=== PATIENT | male | born 1945 | race Caucasian/White ===

== ENCOUNTER 2021-07-22 12:59 | Inpatient (IN) | payer OTHER, MEDICARE ==
[~2021-07-22] VITALS: Ht 170.2 cm; Wt 72.6 kg
--- NOTE | 2021-07-22 13:10 | NUR ---
DR HARP AT BEDSIDE
--- NOTE | 2021-07-22 13:36 | NUR ---
LUNCHROOM MONITOR AT BEDSIDE
--- NOTE | 2021-07-22 13:45 | NUR ---
RAPID INFLUENZA SWAB DONE AND SENT TO LAB
--- NOTE | 2021-07-22 13:46 | NUR ---
COVID-19 ANTIGEN AND PCR SWAB DONE AND SENT TO LAB
--- NOTE | 2021-07-22 13:47 | NUR ---
PATIENT NOT ABLE TO PROVIDE URINE SAMPLE AT THIS TIME. AWARE
[2021-07-22] MEDS ORDERED: AZITHROMYCIN 500 MG in IV D5W 250 ML IV ONE (14:00)
[2021-07-22] MEDS ORDERED: CEFTRIAXONE 1 G in IV D5W 50 ML IV ONE (14:00)
--- NOTE | 2021-07-22 14:15 | NUR ---
MOVE SHEET SUBMITTED AND CALLED FOR TELE BED
[2021-07-22] MEDS ORDERED: SIMV-46 PO (14:27)
[2021-07-22] MEDS ORDERED: LOSA50TA39 PO (14:27)
[2021-07-22] MEDS ORDERED: LEVO25TA9 PO (14:27)
[2021-07-22] MEDS ORDERED: RAMI5CAP66 PO (14:27)
[2021-07-22] MEDS ORDERED: TAMS-12 PO (14:27)
--- NOTE | 2021-07-22 14:30 | NUR ---
[facility] CALLED JUMPBASTING MACHINE OPERATOR PAGED.
[2021-07-22 14:34] LABS: BASOPHILS % (AUTO) 0.2 % (0.0-2.0); EOSINOPHILS % (AUTO) 0.1 % (0.0-6.0); HEMATOCRIT 39 % (39-51); HEMOGLOBIN 13.4 g/dL (13.5-17.5); LYMPHOCYTES # (AUTO) 0.5 K/uL (0.8-4.8); LYMPHOCYTES % (AUTO) 12.9 % (20.0-44.0); MEAN CORPUSCULAR HGB CONC 35 g/dl (31.0-36.0); MEAN CORPUSCULAR VOLUME 95 fL (80-96); MONOCYTES # (AUTO) 0.3 K/uL (0.1-1.30); MONOCYTES % (AUTO) 8.2 % (2.0-12.0); NEUTROPHILS % (AUTO) 78.6 % (43.0-81.0); PLATELET COUNT (AUTO) 162 K/uL (150-450); RED BLOOD CELL COUNT(AUTO) 4.08 MIL/uL (4.5-6.0); WHITE BLOOD COUNT (AUTO) 3.8 K/uL (4.3-11.0)
[2021-07-22 14:45] LABS: CREATINE KINASE, TOTAL 77 U/L (39-308)
[2021-07-22 14:47] LABS: D-DIMER 3.34 mg/L(FEU (0.17-0.50)
[2021-07-22 14:53] LABS: ALANINE AMINOTRANSFERASE 25 U/L (12-78); ALKALINE PHOSPHATASE 85 U/L (46-116); ASPARTATE AMINOTRANSFERASE 35 U/L (15-37); BILIRUBIN,TOTAL 0.7 mg/dL (0.2-1.0); CALCIUM, SERUM 8.6 mg/dL (8.5-10.1); CARBON DIOXIDE 26 mmol/L (21-32); CHLORIDE 98 mmol/L (98-107); CREATININE 1.5 mg/dL (0.6-1.3); GLUCOSE 117 mg/dL (74-106); SODIUM SERUM 133 mmol/L (136-145); TOTAL PROTEIN, SERUM 7.7 g/dL (6.4-8.2); UREA NITROGEN, BLOOD 18 mg/dL (7-18)
--- NOTE | 2021-07-22 14:55 | NUR ---
PATIENT NOT ABLE TO PROVIDE URINE SAMPLE AT THIS TIME.
[2021-07-22 15:26] LABS: C-REACTIVE PROTEIN 9.7 mg/dL (0.0-0.9)
[2021-07-22] MEDS ORDERED: Z GUARD REMEDY 4 OZ OINT TP PRN (17:00)
[2021-07-22] MEDS ORDERED: MAGNESIUM HYDROXIDE 30 ML UDC PO PRN (17:00)
[2021-07-22] MEDS ORDERED: ONDANSETRON HCL/PF 4 MG/2 ML VIAL IVP PRN (17:00)
[2021-07-22] MEDS ORDERED: ACETAMINOPHEN 325 MG TABLET PO PRN (17:00)
--- NOTE | 2021-07-22 17:12 | NUR ---
GOT BED 206
--- NOTE | 2021-07-22 17:17 | NUR ---
REPORT GIVEN TO LEÓN RIBERA OF [facility] UNIT
--- NOTE | 2021-07-22 17:32 | NUR ---
PATIENT NOT ABLE TO PROVIDE URINE SAMPLE AT THIS TIME.
--- NOTE | 2021-07-22 18:00 | NUR ---
RN NOTE PT TRANSFERRED TO [facility] VIA [facility]. PT IN COMFORTABLE POSITION. EDUCATED SALES AND MERCHANDISING REPRESENTATIVE LIGHT. V/S CHECKED. NO SKIN ISSUES PRESENT. NO DISTRESS NOTED. SAFETY MEASURES IN PLACE. SIDE RAILS RAISED. BED LOWERED. CALL LIGHT WITHIN REACH. WILL GIVE REPORT TO NIGHT NURSE FOR ADMISSION PROCESS AND ALINA.
--- NOTE | 2021-07-22 19:16 | NUR ---
RN NOTE PT MALDIVIAN SPEAKING ONLY. ATTEMPTED TO CONTACT FAMILY. NO RESPONSE. UNABLE TO OBTAIN VACCINATION HX
--- NOTE | 2021-07-22 19:30 | NUR ---
PUMP TECHNICIAN OPENING NOTE RECEIVED PT AWAKE IN BED. A/O X1 WITH EPISODES OF CONFUSION, MOHAWK SPEAKING ONLY. PT ON 3 LPM VIA NC. NO SOB OR S/S OF RESPIRATORY DISTRESS AT THIS TIME. ON EXTERNAL CATTLE SHIPPER. IV ACCESS RFA 20 GAUGE SL, INTACT AND PATENT. SAFETY PRECAUTIONS IN PLACE. BED IN LOWEST LOCKED POSITION, HOB ELEVATED, SIDE RAILS UP X2, AND CALL LIGHT AND TABLE WITHIN REACH. WILL CONTINUE WITH PLAN OF CARE.
[2021-07-22 20:00] VITALS: BP 137/80
[2021-07-22] MEDS: TAMSULOSIN 0.4 MG CAP.SR.24H PO SCH (21:18)
[2021-07-22] MEDS: SIMVASTATIN 20 MG TABLET PO SCH (21:18)
[2021-07-22] MEDS: DOXYCYCLINE 100 MG in IV D5W 100 ML IV SCH (21:20)
[2021-07-22] MEDS: HEPARIN SODIUM, PORCINE 5000 UNITS/1 ML VIAL SQ SCH (21:23)
[2021-07-22] MEDS: DEXAMETHASONE SOD PHOSPHATE 10 MG/ML VIAL IV SCH (21:41)
[2021-07-23] VITALS: BP 132/73
[2021-07-23 04:00] VITALS: BP 118/71
--- NOTE | 2021-07-23 06:46 | NUR ---
MACHINE II CUTTER CLOSING NOTE PT AWAKE IN BED. A/O X1 WITH EPISODES OF CONFUSION, YORUBA SPEAKING ONLY. PT ON 3 LPM VIA NC. NO SOB OR S/S OF RESPIRATORY DISTRESS AT THIS TIME. ON EXTERNAL MAINTENANCE ENGINEER READING SR 1ST DEGREE HEART BLOCK 69 BPM. IV ACCESS RFA 20 GAUGE SL, INTACT AND PATENT. ALL NEEDS MET AT THIS TIME. SAFETY PRECAUTIONS IN PLACE AT ALL TIMES. BED IN LOWEST LOCKED POSITION, HOB ELEVATED, SIDE RAILS UP X2, AND CALL LIGHT AND TABLE WITHIN REACH. WILL ENDORSE TO ONCOMING SHIFT FOR ALINA.
--- NOTE | 2021-07-23 07:05 | NUR ---
CHIEF EXECUTIVE OPENING NOTE RECEIVED PT AWAKE IN BED. A/O X1 WITH EPISODES OF CONFUSION, CROATIAN SPEAKING ONLY. PT IS BREATHING EVENLY AND NONLABORED ON 3 LPM VIA NC. NO SOB OR S/S OF RESPIRATORY DISTRESS AT THIS TIME. ON EXTERNAL LOW PRESSURE BOILER TENDER. IV ACCESS NOTED ON RFA 20 GAUGE SL, INTACT AND PATENT. SAFETY PRECAUTIONS IN PLACE. BED IN LOWEST LOCKED POSITION, HOB ELEVATED, SIDE RAILS UP X2, AND CALL LIGHT AND TABLE WITHIN REACH. WILL CONTINUE TO MONITOR
[2021-07-23 07:07] LABS: BASOPHILS % (AUTO) 0.1 % (0.0-2.0); HEMATOCRIT 36 % (39-51); HEMOGLOBIN 12.5 g/dL (13.5-17.5); LYMPHOCYTES # (AUTO) 0.7 K/uL (0.8-4.8); LYMPHOCYTES % (AUTO) 10.7 % (20.0-44.0); MEAN CORPUSCULAR HGB CONC 35 g/dl (31.0-36.0); MEAN CORPUSCULAR VOLUME 94 fL (80-96); MONOCYTES # (AUTO) 0.4 K/uL (0.1-1.30); MONOCYTES % (AUTO) 5.4 % (2.0-12.0); NEUTROPHILS # (AUTO) 5.5 K/uL (1.8-8.9); NEUTROPHILS % (AUTO) 83.8 % (43.0-81.0); PLATELET COUNT (AUTO) 177 K/uL (150-450); RED BLOOD CELL COUNT(AUTO) 3.81 MIL/uL (4.5-6.0); WHITE BLOOD COUNT (AUTO) 6.6 K/uL (4.3-11.0)
[2021-07-23 07:11] LABS: CALCIUM, SERUM 7.9 mg/dL (8.5-10.1); CARBON DIOXIDE 25 mmol/L (21-32); CHLORIDE 99 mmol/L (98-107); CREATININE 1.4 mg/dL (0.6-1.3); GLUCOSE 100 mg/dL (74-106); MAGNESIUM 2.2 mg/dL (1.8-2.4); POTASSIUM 3.9 mmol/L (3.5-5.1); SODIUM SERUM 133 mmol/L (136-145); UREA NITROGEN, BLOOD 17 mg/dL (7-18)
[2021-07-23 08:00] VITALS: BP 111/71
[2021-07-23] MEDS: DOXYCYCLINE 100 MG in IV D5W 100 ML IV SCH ×2 (08:03→21:08)
[2021-07-23] MEDS: LEVOTHYROXINE SODIUM 25 MCG TABLET PO SCH (08:04)
[2021-07-23] MEDS: DEXAMETHASONE SOD PHOSPHATE 10 MG/ML VIAL IV SCH (08:04)
[2021-07-23] MEDS: PANTOPRAZOLE 40 MG TABLET.DR PO SCH (08:04)
[2021-07-23] MEDS: HEPARIN SODIUM, PORCINE 5000 UNITS/1 ML VIAL SQ SCH ×2 (08:05→21:10)
--- NOTE | 2021-07-23 15:17 | NUR ---
RN NOTE PATIENT NOTED TO HAVE 600 ML + DURING ULTRASOUND, NOTIFIED WHO GAVE NEW ORDER TO INSERT FC, FC 16FR INSERTED, 500 ML OUT. WILL CONTINUE TO MONITOR
[2021-07-23] MEDS: CEFTRIAXONE 1 G in IV D5W 50 ML IV SCH (16:01)
--- NOTE | 2021-07-23 18:16 | NUR ---
DIETICIAN CLOSING NOTE PT AWAKE IN BED. A/O X1 WITH EPISODES OF CONFUSION, BULGARIAN SPEAKING ONLY. PT IS BREATHING EVENLY AND NONLABORED ON 3 LPM VIA NC. NO SOB OR S/S OF RESPIRATORY DISTRESS AT THIS TIME. ON EXTERNAL WELDER FIRST CLASS. IV ACCESS NOTED ON RFA 20 GAUGE SL, INTACT AND PATENT. F/C DRAINING JUSTIN URINE. SAFETY PRECAUTIONS IN PLACE. BED IN LOWEST LOCKED POSITION, HOB ELEVATED, SIDE RAILS UP X2, AND CALL LIGHT AND TABLE WITHIN REACH. WILL ENDORSE TO ONCOMING SHIFT
--- NOTE | 2021-07-23 19:25 | NUR ---
RN OPENING NOTES RECEIVED PT IN BED, AWAKE. AOx2-3, WITH PERIODS OF CONFUSION. ON NC 3LPM AND TOLERATING WELL. NO SOB NOTED. NO S/SX OF RESPIRATORY DISTRESS NOTED. TELE MONITOR ON. IV ACCES IN RFA #20. IV IS INTACT, PATENT, AND FLUSHING WELL. SAFETY PRECAUTIONS IN PLACE: BED IN LOWEST, LOCKED POSITION, BRAKES ON, AND SIDERAILS UPx2. TABLE AND CALL LIGHT WITHIN REACH. WILL CONTINUE TO MONITOR.
[2021-07-23 20:00] VITALS: BP 123/73
[2021-07-23] MEDS: TAMSULOSIN 0.4 MG CAP.SR.24H PO SCH (21:08)
[2021-07-23] MEDS: SIMVASTATIN 20 MG TABLET PO SCH (21:09)
[2021-07-24] VITALS: BP 119/75
[2021-07-24 03:09] LABS: BILIRUBIN,URINE NEGATIVE (NEGATIVE); COLOR,URINE YELLOW (YELLOW); LEUKOCYTE ESTERASE ,URINE NEGATIVE (NEGATIVE); NITRITE, URINE NEGATIVE (NEGATIVE); PROTEIN,URINE TRACE mg/dl (NEGATIVE); UGLUCOSE NEGATIVE (NEGATIVE); UROBILINOGEN,URINE 0.2 EU/dL (0.2)
[2021-07-24 03:33] LABS: CREATININE, URINE 198.9 MG/DL (30.0-125.0); URINE TOTAL PROTEIN 65.1 mg/dL (0-11.9)
[2021-07-24 04:00] VITALS: BP 116/69
[2021-07-24 06:23] LABS: BACTERIA,URINE Few /HPF (None Seen); RBC,URINE 0-2 /HPF (0-2); SQUAMOUS EPITHELIAL CELL,UR Few /HPF (None Seen); URINE AMORPHOUS URATE Many /HPF (None Seen); WBC,URINE 0-2 /HPF (0-3)
[2021-07-24] MEDS: PANTOPRAZOLE 40 MG TABLET.DR PO SCH (06:50)
--- NOTE | 2021-07-24 07:04 | NUR ---
RN CLOSING NOTES RECEIVED PT IN BED, AWAKE. AOx1-2, WITH PERIODS OF CONFUSION. ON NC 3LPM AND TOLERATING WELL. NO SOB NOTED. NO S/SX OF RESPIRATORY DISTRESS NOTED. TELE MONITOR DETECTS SR WITH AV BLOCK AND RATE IN 60s. IV ACCES IN RFA #20. IV IS INTACT, PATENT, AND FLUSHING WELL. FC DRAINING TEA COLORED URINE. ALL NEEDS MET. PT KEPT CLEAN AND DRY. SAFETY PRECAUTIONS IN PLACE: BED IN LOWEST, LOCKED POSITION, BRAKES ON, AND SIDERAILS UPx2. TABLE AND CALL LIGHT WITHIN REACH. WILL ENDORSE TO ONCOMING SHIFT FOR ALINA.
[2021-07-24 07:09] LABS: BASOPHILS % (AUTO) 0.1 % (0.0-2.0); HEMATOCRIT 37 % (39-51); HEMOGLOBIN 12.9 g/dL (13.5-17.5); LYMPHOCYTES # (AUTO) 0.4 K/uL (0.8-4.8); MEAN CORPUSCULAR HGB CONC 35 g/dl (31.0-36.0); MEAN CORPUSCULAR VOLUME 94 fL (80-96); MONOCYTES # (AUTO) 0.3 K/uL (0.1-1.30); MONOCYTES % (AUTO) 4.5 % (2.0-12.0); NEUTROPHILS # (AUTO) 6.6 K/uL (1.8-8.9); NEUTROPHILS % (AUTO) 89.4 % (43.0-81.0); PLATELET COUNT (AUTO) 208 K/uL (150-450); RED BLOOD CELL COUNT(AUTO) 3.89 MIL/uL (4.5-6.0); WHITE BLOOD COUNT (AUTO) 7.4 K/uL (4.3-11.0)
[2021-07-24 07:39] LABS: ALANINE AMINOTRANSFERASE 24 U/L (12-78); ALBUMIN 2.7 g/dL (3.4-5.0); ALKALINE PHOSPHATASE 73 U/L (46-116); ASPARTATE AMINOTRANSFERASE 27 U/L (15-37); BILIRUBIN,TOTAL 0.4 mg/dL (0.2-1.0); CALCIUM, SERUM 8.4 mg/dL (8.5-10.1); CARBON DIOXIDE 28 mmol/L (21-32); CHLORIDE 101 mmol/L (98-107); CREATININE 1.4 mg/dL (0.6-1.3); GLUCOSE 120 mg/dL (74-106); MAGNESIUM 2.2 mg/dL (1.8-2.4); PHOSPHORUS 3.3 mg/dL (2.5-4.9); POTASSIUM 4.4 mmol/L (3.5-5.1); SODIUM SERUM 135 mmol/L (136-145); TOTAL PROTEIN, SERUM 7.3 g/dL (6.4-8.2); UREA NITROGEN, BLOOD 24 mg/dL (7-18)
[2021-07-24 07:41] LABS: CREATINE KINASE, TOTAL 90 U/L (39-308)
[2021-07-24] MEDS: DEXAMETHASONE SOD PHOSPHATE 10 MG/ML VIAL IV SCH (08:34)
[2021-07-24] MEDS: DOXYCYCLINE 100 MG in IV D5W 100 ML IV SCH (08:34)
[2021-07-24] MEDS: LEVOTHYROXINE SODIUM 25 MCG TABLET PO SCH (08:34)
[2021-07-24] MEDS: HEPARIN SODIUM, PORCINE 5000 UNITS/1 ML VIAL SQ SCH ×2 (08:38→21:06)
[2021-07-24 08:40] VITALS: BP 122/56
[2021-07-24 12:38] VITALS: BP 109/68
[2021-07-24 16:01] VITALS: BP 152/68
[2021-07-24] MEDS: CEFTRIAXONE 1 G in IV D5W 50 ML IV SCH (16:31)
[2021-07-24 16:35] LABS: EOSINOPHIL,URINE None Seen
[2021-07-24 19:11] LABS: ABG BASE EXCESS -0.6 mmol/L; ABG OXYGEN SATURATION 97.4 % (92.0-98.5); ABG PCO2 33.4 mmHg (35.0-45.0); ABG PH 7.451 (7.350-7.450); ABG PO2 100.4 mmHg (75.0-100.0); AaDO2 9.3 mmHg; COHb 0.1 % (0.5-1.5); MetHb 0.1 % (0.0-1.5); O2Hb 97.2 % (94.0-97.0); SITE, ABG Right Radial; VENT MODE, BG 21% ROOM AIR
--- NOTE | 2021-07-24 19:25 | NUR ---
CHANGE OF SHIFT REPORT PT RESTING COMFORTABLY IN BED. NO S/S OR C/O PAIN OR DISTRESS NOTED. SIDE RAILS UP X2, CALL LIGHT LEFT WITHIN REACH. NO SIGNIFICANT CHANGES SINCE PREVIOUS SHIFT. WILL GIVE REPORT TO DULCE RIBERA.
--- NOTE | 2021-07-24 19:50 | NUR ---
TELE/RN OPENING NOTE RECEIVED PATIENT RESTING IN BED. AWAKE, ALERT AND ORIENTED X 4. PRIMARILY GREEK SPEAKING. ABLE TO MAKE NEEDS KNOWN. DENIES PAIN AT THIS TIME. CONTINUES ON O2 3L VIA NC WITH NO S/SX OF RESPIRATORY DISTRESS NOTED. IV ACCESS TO RIGHT FOREARM #20G INTACT, PATENT AND SALINE LOCKED. CONTINUES ON IV ABX. RDZ CATHETER IN PLACE DRAINING CLEAR, YELLOW URINE TO GRAVITY. CALL LIGHT WITHIN REACH. ASPIRATION, FALL AND SAFETY PRECAUTIONS MAINTAINED. WILL CONTINUE TO MONITOR.
[2021-07-24 20:00] VITALS: BP 118/76
[2021-07-24] MEDS: DOXYCYCLINE HYCLATE (100 MG) 100 MG TABLET PO SCH (21:04)
[2021-07-24] MEDS: SIMVASTATIN 20 MG TABLET PO SCH (21:04)
[2021-07-24] MEDS: TAMSULOSIN 0.4 MG CAP.SR.24H PO SCH (21:04)
[2021-07-25] VITALS: BP 112/54
[2021-07-25 04:00] VITALS: BP 120/72
--- NOTE | 2021-07-25 06:40 | NUR ---
TELE/RN CLOSING NOTE PATIENT CURRENTLY SLEEPING IN BED. ALERT AND ORIENTED X 4. PRIMARILY BAHRAINI SPEAKING. ABLE TO MAKE NEEDS KNOWN. DENIES PAIN AT THIS TIME. CONTINUES ON O2 3L VIA NC WITH NO S/SX OF RESPIRATORY DISTRESS NOTED. IV ACCESS TO RIGHT HAND #20G INTACT, PATENT AND SALINE LOCKED. CONTINUES ON IV ABX. RDZ CATHETER IN PLACE DRAINING CLEAR, YELLOW URINE TO GRAVITY. CALL LIGHT WITHIN REACH. ASPIRATION, FALL AND SAFETY PRECAUTIONS MAINTAINED. WILL ENDORSE PLAN OF CARE TO ONCOMING SHIFT.
[2021-07-25 07:02] LABS: CALCIUM, SERUM 8.3 mg/dL (8.5-10.1); CARBON DIOXIDE 28 mmol/L (21-32); CHLORIDE 100 mmol/L (98-107); CREATININE 1.5 mg/dL (0.6-1.3); GLUCOSE 111 mg/dL (74-106); MAGNESIUM 2.1 mg/dL (1.8-2.4); PHOSPHORUS 3.1 mg/dL (2.5-4.9); POTASSIUM 3.9 mmol/L (3.5-5.1); SODIUM SERUM 137 mmol/L (136-145); UREA NITROGEN, BLOOD 34 mg/dL (7-18)
[2021-07-25 07:03] LABS: BASOPHILS % (AUTO) 0.1 % (0.0-2.0); HEMATOCRIT 36 % (39-51); HEMOGLOBIN 12.7 g/dL (13.5-17.5); LYMPHOCYTES # (AUTO) 0.6 K/uL (0.8-4.8); MEAN CORPUSCULAR HGB CONC 35 g/dl (31.0-36.0); MEAN CORPUSCULAR VOLUME 95 fL (80-96); MONOCYTES # (AUTO) 0.5 K/uL (0.1-1.30); MONOCYTES % (AUTO) 5.4 % (2.0-12.0); NEUTROPHILS # (AUTO) 8.4 K/uL (1.8-8.9); NEUTROPHILS % (AUTO) 88.5 % (43.0-81.0); PLATELET COUNT (AUTO) 231 K/uL (150-450); RED BLOOD CELL COUNT(AUTO) 3.83 MIL/uL (4.5-6.0); WHITE BLOOD COUNT (AUTO) 9.5 K/uL (4.3-11.0)
--- NOTE | 2021-07-25 07:36 | NUR ---
RN OPENING NOTES PATIENT SLEEPING, AWAKENS TO VERBAL STIMULI A/O X3-4. NO S/S OF PAIN NOTED AT THIS TIME. ON 3L OXYGEN VIA NC, NO DISTRESS OR SHORTNESS OF BREATH NOTED. IV ACCESS RFA #20G, INTACT, PATENT AND FLUSHING WELL. PATIENT HAVE A RDZ CATHETER, IN PLACE AND DRAINING WELL. FALL AND SAFETY MEASURES IN PLACE, BED ALARM ON, BED IN LOW AND LOCK POSITION, CALL LIGHT AND TABLE WITHIN EASY REACH, SIDE RAILS UP X2. WILL CONTINUE TO MONITOR.
[2021-07-25 08:00] VITALS: BP 134/92
[2021-07-25] MEDS: DOXYCYCLINE HYCLATE (100 MG) 100 MG TABLET PO SCH ×2 (09:25→20:45)
[2021-07-25] MEDS: PANTOPRAZOLE 40 MG TABLET.DR PO SCH (09:25)
[2021-07-25] MEDS: LEVOTHYROXINE SODIUM 25 MCG TABLET PO SCH (09:25)
[2021-07-25] MEDS: DEXAMETHASONE SOD PHOSPHATE 10 MG/ML VIAL IV SCH (09:26)
[2021-07-25] MEDS: HEPARIN SODIUM, PORCINE 5000 UNITS/1 ML VIAL SQ SCH ×2 (09:27→20:47)
[2021-07-25 12:00] VITALS: BP 128/75
[2021-07-25 12:06] LABS: *SPE A/G RATIO 0.7 (0.7-1.7); *SPE ALPHA-1-GLOBULIN 0.3 g/dL (0.0-0.4); *SPE ALPHA-2-GLOBULIN 0.9 g/dL (0.4-1.0); *SPE M-SPIKE Not Observed g/dL (Not Observed)
[2021-07-25 16:00] VITALS: BP 128/81
[2021-07-25] MEDS: CEFTRIAXONE 1 G in IV D5W 50 ML IV SCH (17:32)
--- NOTE | 2021-07-25 19:16 | NUR ---
RN CLOSING NOTES PATIENT AWAKE RESTING IN BED A/O X3-4. NO S/S OF PAIN NOTED AT THIS TIME. ON 3L OXYGEN VIA NC, NO DISTRESS OR SHORTNESS OF BREATH NOTED. IV ACCESS RFA #20G, INTACT, PATENT AND FLUSHING WELL. PATIENT HAVE A RDZ CATHETER, IN PLACE AND DRAINING WELL. FALL AND SAFETY MEASURES IN PLACE, BED ALARM ON, BED IN LOW AND LOCK POSITION, CALL LIGHT AND TABLE WITHIN EASY REACH, SIDE RAILS UP X2. WILL ENDORSE TO C++ PROFESSOR.
--- NOTE | 2021-07-25 19:40 | NUR ---
TELE/RN OPENING NOTE PATIENT CURRENTLY RESTING IN BED. AWAKE, ALERT AND ORIENTED X 4. PRIMARILY NORTH KOREAN SPEAKING. ABLE TO MAKE NEEDS KNOWN. DENIES PAIN AT THIS TIME. CONTINUES ON O2 2L VIA NC WITH NO S/SX OF RESPIRATORY DISTRESS NOTED. IV ACCESS TO RIGHT HAND #20G INTACT, PATENT AND SALINE LOCKED. CONTINUES ON IV ABX. RDZ CATHETER IN PLACE DRAINING CLEAR, YELLOW URINE TO GRAVITY. CALL LIGHT WITHIN REACH. ASPIRATION, FALL AND SAFETY PRECAUTIONS MAINTAINED. WILL CONTINUE TO MONITOR.
[2021-07-25 20:00] VITALS: BP 132/79
[2021-07-25] MEDS: TAMSULOSIN 0.4 MG CAP.SR.24H PO SCH (21:25)
[2021-07-25] MEDS: SIMVASTATIN 20 MG TABLET PO SCH (21:25)
[2021-07-26] VITALS: BP 128/68
[2021-07-26 04:00] VITALS: BP 128/68
--- NOTE | 2021-07-26 06:40 | NUR ---
TELE/RN CLOSING NOTE PATIENT CURRENTLY SLEEPING IN BED. ALERT AND ORIENTED X 4. PRIMARILY PALAUAN SPEAKING. ABLE TO MAKE NEEDS KNOWN. DENIES PAIN AT THIS TIME. CONTINUES ON O2 2L VIA NC WITH NO S/SX OF RESPIRATORY DISTRESS NOTED. IV ACCESS TO RIGHT HAND #20G INTACT, PATENT AND SALINE LOCKED. CONTINUES ON IV ABX. RDZ CATHETER IN PLACE DRAINING CLEAR, YELLOW URINE TO GRAVITY. CALL LIGHT WITHIN REACH. ASPIRATION, FALL AND SAFETY PRECAUTIONS MAINTAINED. WILL ENDORSE PLAN OF CARE TO ONCOMING SHIFT.
[2021-07-26 06:49] LABS: BASOPHILS % (AUTO) 0.2 % (0.0-2.0); HEMATOCRIT 37 % (39-51); HEMOGLOBIN 12.8 g/dL (13.5-17.5); LYMPHOCYTES # (AUTO) 0.7 K/uL (0.8-4.8); LYMPHOCYTES % (AUTO) 10.3 % (20.0-44.0); MEAN CORPUSCULAR HGB CONC 34 g/dl (31.0-36.0); MEAN CORPUSCULAR VOLUME 95 fL (80-96); MONOCYTES # (AUTO) 0.5 K/uL (0.1-1.30); MONOCYTES % (AUTO) 7.7 % (2.0-12.0); NEUTROPHILS # (AUTO) 5.4 K/uL (1.8-8.9); NEUTROPHILS % (AUTO) 81.8 % (43.0-81.0); PLATELET COUNT (AUTO) 210 K/uL (150-450); WHITE BLOOD COUNT (AUTO) 6.7 K/uL (4.3-11.0)
--- NOTE | 2021-07-26 07:25 | NUR ---
TEST GRADER OPENING NOTES RECEIVED PATIENT IN BED, AWAKE A/O X4, VERBALLY RESPONSIVE. NO SIGNS OF ACUTE DISTRESS NOTED. ON O2 @2LPM VIA N/C, NO SOB NOTED, SATURATION @97%. NO C/O PAIN OR DISCOMFORT. IV ACCESS ON RHAND #20G, SL. WITH F/C INTACT AND PATENT, DRAINING CLEAR YELLOW URINE. ON TELE MONITOR. NO SIGNS OF CARDIAC DISTRESS NOTED. ISOLATION PRECAUTION OBSERVED. SAFETY PRECAUTIONS MAINTAINED. BED DANITZA DAND IN LOWEST POSITION, SR UP, CALL LIGHT PLACED WITHIN EASY REACH. WILL CONTINUE TO MONITOR.
[2021-07-26 07:54] LABS: CALCIUM, SERUM 8.2 mg/dL (8.5-10.1); CARBON DIOXIDE 25 mmol/L (21-32); CHLORIDE 104 mmol/L (98-107); CREATININE 1.4 mg/dL (0.6-1.3); GLUCOSE 103 mg/dL (74-106); POTASSIUM 4.2 mmol/L (3.5-5.1); SODIUM SERUM 137 mmol/L (136-145); UREA NITROGEN, BLOOD 37 mg/dL (7-18)
[2021-07-26 08:00] VITALS: BP 153/81
[2021-07-26] MEDS: PANTOPRAZOLE 40 MG TABLET.DR PO SCH (08:03)
[2021-07-26] MEDS: HEPARIN SODIUM, PORCINE 5000 UNITS/1 ML VIAL SQ SCH ×2 (08:42→21:07)
[2021-07-26] MEDS: LEVOTHYROXINE SODIUM 25 MCG TABLET PO SCH (08:43)
[2021-07-26] MEDS: DOXYCYCLINE HYCLATE (100 MG) 100 MG TABLET PO SCH ×2 (08:43→21:07)
[2021-07-26] MEDS: DEXAMETHASONE SOD PHOSPHATE 10 MG/ML VIAL IV SCH (08:43)
[2021-07-26] MEDS ORDERED: REMDESIVIR (CHARGED) 200 MG, *LOADING DOSE 1 EA in IV NS 0.9% 210 ML IV ONE (11:00)
[2021-07-26] MEDS: CEFTRIAXONE 1 G in IV D5W 50 ML IV SCH (16:32)
--- NOTE | 2021-07-26 18:55 | NUR ---
BLEACHER LARD CLOSING NOTES PATIENT RESTING IN BED, AWAKE, A/O X4, VERBALLY RESPONSIVE. NO SIGNS OF ACUTE DISTRESS NOTED. REMAINS ON O2 @2LPM VIA N/C, NO SOB NOTED, SATURATION @97%. NO C/O PAIN OR DISCOMFORT. IV ACCESS ON RHAND #20G, SL. FIRST DOSE OF REMDESIVIR GIVEN, NO ASE NOTED. WITH F/C INTACT AND PATENT, DRAINING CLEAR YELLOW URINE. ON TELE MONITOR WITH CURRENT READING OF NSR @93.. NO SIGNS OF CARDIAC DISTRESS NOTED. ISOLATION PRECAUTION OBSERVED. SAFETY PRECAUTIONS MAINTAINED. BED LOCKED AND IN LOWEST POSITION, SR UP, CALL LIGHT PLACED WITHIN EASY REACH. WILL ENDORSE TO NEXT SHIFT.
[2021-07-26 20:00] VITALS: BP 121/60
[2021-07-26] MEDS: TAMSULOSIN 0.4 MG CAP.SR.24H PO SCH (21:08)
[2021-07-26] MEDS: SIMVASTATIN 20 MG TABLET PO SCH (21:08)
[2021-07-27] VITALS: BP 155/81
[2021-07-27 04:00] VITALS: BP 135/74
--- NOTE | 2021-07-27 06:35 | NUR ---
CANINE ENFORCEMENT OFFICER NOTES AWAKE & RESPONSIVE. NOT IN ANY DISTRESS. NO SOB NOTED. NO S/SX OF ANY PAIN OR DISCOMFORT AT THIS TIME. ON TELE SR @ 73 WITH IV-HL PATENT & INTACT. AM CARE DONE. MONITORED ACCORDINGLY. CALL LIGHT WITHIN REACH. BED IN LOWEST POSITION. SR UP X 3 WITH BED ALARM ON FOR SAFETY. WILL ENDORSE TO NEXT SHIFT.
[2021-07-27 06:58] LABS: EOSINOPHILS % (AUTO) 0.2 % (0.0-6.0); HEMATOCRIT 38 % (39-51); HEMOGLOBIN 13.2 g/dL (13.5-17.5); LYMPHOCYTES % (AUTO) 18.2 % (20.0-44.0); MEAN CORPUSCULAR HGB CONC 35 g/dl (31.0-36.0); MEAN CORPUSCULAR VOLUME 95 fL (80-96); MONOCYTES # (AUTO) 0.7 K/uL (0.1-1.30); MONOCYTES % (AUTO) 12.1 % (2.0-12.0); NEUTROPHILS # (AUTO) 3.8 K/uL (1.8-8.9); NEUTROPHILS % (AUTO) 69.5 % (43.0-81.0); PLATELET COUNT (AUTO) 240 K/uL (150-450); RED BLOOD CELL COUNT(AUTO) 4.03 MIL/uL (4.5-6.0); WHITE BLOOD COUNT (AUTO) 5.5 K/uL (4.3-11.0)
[2021-07-27 07:10] LABS: ALBUMIN 2.6 g/dL (3.4-5.0); BILIRUBIN,DIRECT 0.2 mg/dL (0.0-0.2); BILIRUBIN,TOTAL 0.3 mg/dL (0.2-1.0); CALCIUM, SERUM 8.5 mg/dL (8.5-10.1); CREATININE 1.3 mg/dL (0.6-1.3); POTASSIUM 4.1 mmol/L (3.5-5.1); TOTAL PROTEIN, SERUM 6.9 g/dL (6.4-8.2)
[2021-07-27 08:00] VITALS: BP 138/68
--- NOTE | 2021-07-27 08:20 | NUR ---
ms rn received on bed, awake,alert,oriented x3,not in any form of ditress, respirations even and unlabored,no sob noted, denies pain at this time, will monitor patient.
[2021-07-27] MEDS: DEXAMETHASONE SOD PHOSPHATE 10 MG/ML VIAL IV SCH (09:08)
[2021-07-27] MEDS: DOXYCYCLINE HYCLATE (100 MG) 100 MG TABLET PO SCH ×2 (09:09→20:59)
[2021-07-27] MEDS: LEVOTHYROXINE SODIUM 25 MCG TABLET PO SCH (09:09)
[2021-07-27] MEDS: PANTOPRAZOLE 40 MG TABLET.DR PO SCH (09:09)
[2021-07-27] MEDS: HEPARIN SODIUM, PORCINE 5000 UNITS/1 ML VIAL SQ SCH ×2 (09:09→20:58)
[2021-07-27] MEDS ORDERED: REMDESIVIR (CHARGED) 100 MG in IV NS 0.9% 230 ML IV SCH (09:30)
--- NOTE | 2021-07-27 10:00 | NUR ---
ms weber breakfast served,due meds given,tolerated well.
[2021-07-27] MEDS: REMDESIVIR (CHARGED) 100 MG in IV NS 0.9% 100 ML IV SCH (15:20)
--- NOTE | 2021-07-27 16:39 | NUR ---
ms rn on bed, no distress noted.
[2021-07-27] MEDS: CEFTRIAXONE 1 G in IV D5W 50 ML IV SCH (17:53)
--- NOTE | 2021-07-27 19:05 | NUR ---
ms rn on bed, no distress noted.
--- NOTE | 2021-07-27 19:45 | NUR ---
RN NOTES Received patient awake on his bed, a/ox3, Egyptian speaking, SR on tele monitor HR-84, not in distress, denies pain, call light within reach, siderailsupx2, will continue to monitor
[2021-07-27 20:00] VITALS: BP 143/89
[2021-07-27] MEDS: TAMSULOSIN 0.4 MG CAP.SR.24H PO SCH (21:00)
[2021-07-27] MEDS: SIMVASTATIN 20 MG TABLET PO SCH (21:00)
[2021-07-27 22:00] VITALS: BP 150/70
[2021-07-28] VITALS: BP 143/92
[2021-07-28 04:00] VITALS: BP 151/91
--- NOTE | 2021-07-28 07:00 | NUR ---
RN NOTES awake, denies pain, no SOB, morning care rendered, pt. needs attended
[2021-07-28 07:11] LABS: BASOPHILS % (AUTO) 0.1 % (0.0-2.0); EOSINOPHILS % (AUTO) 0.1 % (0.0-6.0); HEMATOCRIT 37 % (39-51); HEMOGLOBIN 12.8 g/dL (13.5-17.5); LYMPHOCYTES # (AUTO) 0.9 K/uL (0.8-4.8); LYMPHOCYTES % (AUTO) 17.9 % (20.0-44.0); MEAN CORPUSCULAR HGB CONC 34 g/dl (31.0-36.0); MEAN CORPUSCULAR VOLUME 96 fL (80-96); MONOCYTES # (AUTO) 0.7 K/uL (0.1-1.30); MONOCYTES % (AUTO) 13.8 % (2.0-12.0); NEUTROPHILS # (AUTO) 3.6 K/uL (1.8-8.9); NEUTROPHILS % (AUTO) 68.1 % (43.0-81.0); PLATELET COUNT (AUTO) 239 K/uL (150-450); RED BLOOD CELL COUNT(AUTO) 3.91 MIL/uL (4.5-6.0); WHITE BLOOD COUNT (AUTO) 5.2 K/uL (4.3-11.0)
--- NOTE | 2021-07-28 07:30 | NUR ---
FINE ARTS CHAIR OPENING NOTES RECEIVED PATIENT ON BED RESTING ON BED AND A/O X3. ON O2 AT 2LPM VIA NASAL CANNULA TOLERATING WELL. NO SOB NOTED. NOT IN DISTRESS. WITH NO COMPLAINTS OF PAIN OR DISCOMFORT AT THIS TIME. WITH IV ACCESS AT RIGHT HAND G20 SALINE LOCKED, PATENT AND INTACT. SAFETY MEASURES IN PLACED. CALL LIGHT WITHIN REACH. BED ON LOWEST LOCKED POSITION, SIDE RAILS UP X2. WILL CONTINUE TO MONITOR.
[2021-07-28 07:32] LABS: ALBUMIN 2.5 g/dL (3.4-5.0); BILIRUBIN,DIRECT 0.2 mg/dL (0.0-0.2); BILIRUBIN,TOTAL 0.3 mg/dL (0.2-1.0); CALCIUM, SERUM 8.2 mg/dL (8.5-10.1); CREATININE 1.3 mg/dL (0.6-1.3); POTASSIUM 4.3 mmol/L (3.5-5.1); TOTAL PROTEIN, SERUM 6.4 g/dL (6.4-8.2)
[2021-07-28 08:00] VITALS: BP 128/85
[2021-07-28] MEDS: PANTOPRAZOLE 40 MG TABLET.DR PO SCH (08:55)
[2021-07-28] MEDS: LEVOTHYROXINE SODIUM 25 MCG TABLET PO SCH (08:55)
[2021-07-28] MEDS: DOXYCYCLINE HYCLATE (100 MG) 100 MG TABLET PO SCH ×2 (08:55→21:22)
[2021-07-28] MEDS: DEXAMETHASONE SOD PHOSPHATE 10 MG/ML VIAL IV SCH (08:55)
[2021-07-28] MEDS: HEPARIN SODIUM, PORCINE 5000 UNITS/1 ML VIAL SQ SCH ×2 (08:56→21:25)
[2021-07-28] MEDS: REMDESIVIR (CHARGED) 100 MG in IV NS 0.9% 100 ML IV SCH (14:42)
[2021-07-28] MEDS: CEFTRIAXONE 1 G in IV D5W 50 ML IV SCH (16:08)
--- NOTE | 2021-07-28 18:55 | NUR ---
PROJECT ENG CLOSING NOTES PATIENT ON BED RESTING ON BED AND A/O X3. ON O2 AT 2LPM VIA NASAL CANNULA TOLERATING WELL. NO SOB NOTED. NOT IN DISTRESS. WITH NO COMPLAINTS OF PAIN OR DISCOMFORT AT THIS TIME. WITH IV ACCESS AT RIGHT HAND G20 SALINE LOCKED, PATENT AND INTACT. ON TELE MONITOR CURRENTLY READING SINUS RHYTHM WITH FIRST DEGREE BLOCK AT 76BPM. DUE MEDS GIVEN. SAFETY MEASURES IN PLACED. CALL LIGHT WITHIN REACH. BED ON LOWEST LOCKED POSITION, SIDE RAILS UP X2. WILL ENDORSE TO NEXT SHIFT FOR ALINA.
--- NOTE | 2021-07-28 19:50 | NUR ---
DESK LIEUTENANT OPENING NOTE PATIENT AWAKE IN BED, ALERT/ORIENTED X 3, PT PRIMARILY KOREAN SPEAKING. NO S/S OF PAIN OR DISCOMFORT AT THIS TIME. PT STABLE ON 2 LPM OF OXYGEN VIA NC, NO S/S OF DISTRESS OR SOB NOTED, BREATHING EVEN AND UNLABORED. IV ACCESS ON RIGHT HAND #22G INTACT AND SALINE LOCKED. PT ON EXTERNAL CANTILEVER CRANE OPERATOR READING SINUS RHYTHM WITH FIRST DEGREE BLOCK, HR: 71. RDZ CATHETER INTACT AND DRAINING YELLOW URINE. SAFETY MEASURES IN PLACE: CALL LIGHT WITHIN REACH, SIDE RAILS UP X 2, BED LOCKED IN LOW POSITION, BED ALARM ON. WILL CONTINUE TO MONITOR PATIENT
[2021-07-28 20:00] VITALS: BP 118/72
[2021-07-28] MEDS: TAMSULOSIN 0.4 MG CAP.SR.24H PO SCH (21:22)
[2021-07-28] MEDS: SIMVASTATIN 20 MG TABLET PO SCH (21:22)
[2021-07-29] VITALS: BP 137/78
[2021-07-29 04:00] VITALS: BP 139/75
--- NOTE | 2021-07-29 07:29 | NUR ---
CHIEF OF SERVICE CLOSING NOTE PATIENT SLEEPING IN BED, EASILY AWAKENED, NO SIGNIFICANT CHANGES THROUGHOUT SHIFT. MEDICATIONS GIVEN ORDERED, PT NEEDS MET THROUGHOUT SHIFT. NO S/S OF PAIN OR DISCOMFORT AT THIS TIME. PT STABLE ON 2 LPM OF OXYGEN VIA NC, NO S/S OF DISTRESS OR SOB NOTED, BREATHING EVEN AND UNLABORED. IV ACCESS ON RIGHT HAND #22G INTACT AND SALINE LOCKED. PT ON EXTERNAL NUCLEAR SUPERVISING OPERATOR READING SINUS RHYTHM WITH FIRST DEGREE BLOCK. RDZ CATHETER INTACT AND DRAINING YELLOW URINE. SAFETY MEASURES IN PLACE: CALL LIGHT WITHIN REACH, SIDE RAILS UP X 2, BED LOCKED IN LOW POSITION, BED ALARM ON. ENDORSED TO DAY SHIFT NURSE FOR CONTINUITY OF CARE
[2021-07-29 08:00] VITALS: BP 145/80
--- NOTE | 2021-07-29 08:00 | NUR ---
RN Opening Note Patient received in bed, does not appears distress, able to responds all stimuli. Skin is warm to touch, keep clean/dry, intact IV site. Respiratory even and unlabored with oxygen at 2Ls. Kept elevated HOB for ensure air/aspiration precaution and remains lower position of the bed. call light within reach, will continue to monitor.
[2021-07-29] MEDS: PANTOPRAZOLE 40 MG TABLET.DR PO SCH (08:03)
[2021-07-29 08:13] LABS: ALBUMIN 2.4 g/dL (3.4-5.0); BILIRUBIN,DIRECT 0.1 mg/dL (0.0-0.2); BILIRUBIN,TOTAL 0.3 mg/dL (0.2-1.0); CREATININE 1.3 mg/dL (0.6-1.3); POTASSIUM 4.3 mmol/L (3.5-5.1)
[2021-07-29 08:16] LABS: BASOPHILS % (AUTO) 0.3 % (0.0-2.0); EOSINOPHILS % (AUTO) 0.1 % (0.0-6.0); HEMATOCRIT 37 % (39-51); HEMOGLOBIN 12.4 g/dL (13.5-17.5); LYMPHOCYTES % (AUTO) 17.4 % (20.0-44.0); MEAN CORPUSCULAR HGB CONC 34 g/dl (31.0-36.0); MEAN CORPUSCULAR VOLUME 95 fL (80-96); MONOCYTES # (AUTO) 0.8 K/uL (0.1-1.30); MONOCYTES % (AUTO) 12.8 % (2.0-12.0); NEUTROPHILS # (AUTO) 4.2 K/uL (1.8-8.9); NEUTROPHILS % (AUTO) 69.4 % (43.0-81.0); PLATELET COUNT (AUTO) 223 K/uL (150-450); RED BLOOD CELL COUNT(AUTO) 3.83 MIL/uL (4.5-6.0)
[2021-07-29] MEDS: LEVOTHYROXINE SODIUM 25 MCG TABLET PO SCH (09:10)
[2021-07-29] MEDS: DEXAMETHASONE SOD PHOSPHATE 10 MG/ML VIAL IV SCH (09:11)
[2021-07-29] MEDS: HEPARIN SODIUM, PORCINE 5000 UNITS/1 ML VIAL SQ SCH (09:12)
[2021-07-29 12:00] VITALS: BP 136/86
[2021-07-29] MEDS: REMDESIVIR (CHARGED) 100 MG in IV NS 0.9% 100 ML IV SCH (15:33)
[2021-07-29 16:00] VITALS: BP 122/71
--- NOTE | 2021-07-29 18:00 | NUR ---
RN Closing Note Patient is resting in bed, no distress observed. Respiratory even and unlabored with oxygen at 2Ls. Skin is warm to touch, keep clean/dry, intact IV site. Kept elevated HOB for ensure airway and aspiration precaution, Also lower position of the bed for safety. Call light within reach, all needs met. will endorse maintenance supervisor 2nd shift.
--- NOTE | 2021-07-29 19:30 | NUR ---
RN opening notes Received Pt in bed watching TV comfortably. Pt is alert and orientedX2-3. Pt speaks Italian and able to make needs known. Respiration is 2 L NC. No SOB. No S/s of distress noted. R hand# 22 is clean, intact and flushes easily, SL. tele monitor showed SR with first degree AV block hr at 77. Safety precautions is maintained. Bed at low position, brakes locked, side rails upX3, hob elevated and call light is within reach. Will continue to monitor.
[2021-07-29 20:00] VITALS: BP 105/70
[2021-07-29] MEDS: SIMVASTATIN 20 MG TABLET PO SCH (21:41)
[2021-07-29] MEDS: TAMSULOSIN 0.4 MG CAP.SR.24H PO SCH (21:41)
[2021-07-30] VITALS: BP_SYST 109; BP_SYST 117; BP_DIAS 72; BP_DIAS 90
[2021-07-30 04:00] VITALS: BP 114/74
--- NOTE | 2021-07-30 06:30 | NUR ---
RN closing notes Pt is resting in bed comfortably. Pt is alert and orientedX2-3. Pt speaks Malay and able to make needs known. Respiration is 2 L NC. No SOB. No S/s of distress noted. R hand# 22 is clean, intact and flushes easily, SL. tele monitor showed SR with first degree AV block hr at 66. Routine meds were given as ordered. herring cath is intact and draining yellow urine 450 ml. kept pt clean, dry and comfortable. Safety precautions is maintained. Bed at low position, brakes locked, side rails upX3, hob elevated and call light is within reach. Will endorse to am nurse for ALINA.
[2021-07-30 06:59] LABS: BASOPHILS % (AUTO) 0.1 % (0.0-2.0); HEMATOCRIT 37 % (39-51); HEMOGLOBIN 12.8 g/dL (13.5-17.5); LYMPHOCYTES # (AUTO) 0.8 K/uL (0.8-4.8); LYMPHOCYTES % (AUTO) 12.5 % (20.0-44.0); MEAN CORPUSCULAR HGB CONC 35 g/dl (31.0-36.0); MEAN CORPUSCULAR VOLUME 95 fL (80-96); MONOCYTES # (AUTO) 0.7 K/uL (0.1-1.30); MONOCYTES % (AUTO) 11.1 % (2.0-12.0); NEUTROPHILS # (AUTO) 4.9 K/uL (1.8-8.9); NEUTROPHILS % (AUTO) 76.3 % (43.0-81.0); PLATELET COUNT (AUTO) 224 K/uL (150-450); RED BLOOD CELL COUNT(AUTO) 3.88 MIL/uL (4.5-6.0); WHITE BLOOD COUNT (AUTO) 6.4 K/uL (4.3-11.0)
[2021-07-30 07:23] LABS: ALBUMIN 2.4 g/dL (3.4-5.0); BILIRUBIN,DIRECT 0.2 mg/dL (0.0-0.2); BILIRUBIN,TOTAL 0.4 mg/dL (0.2-1.0); CREATININE 1.3 mg/dL (0.6-1.3); POTASSIUM 4.5 mmol/L (3.5-5.1); TOTAL PROTEIN, SERUM 6.1 g/dL (6.4-8.2)
--- NOTE | 2021-07-30 07:40 | NUR ---
RN NOTES PATIENT RESTING IN BED, AWAKE AND VERBALLY RESPONSIVE. NO RESPIRATORY DISTRESS. CURRENTLY EATING BREAKFAST. SAFETY MEASURES IN PLACE. WILL CONTINUE TO MONITOR.
[2021-07-30 08:00] VITALS: BP 128/69
[2021-07-30] MEDS: DEXAMETHASONE SOD PHOSPHATE 10 MG/ML VIAL IV SCH (08:04)
[2021-07-30] MEDS: PANTOPRAZOLE 40 MG TABLET.DR PO SCH (08:04)
[2021-07-30] MEDS: LEVOTHYROXINE SODIUM 25 MCG TABLET PO SCH (08:04)
--- NOTE | 2021-07-30 08:30 | NUR ---
RN NOTES PATIENT SEEN BY DR. KINNEY TODAY; O2 TITRATED TO 1LPM VIA NC, O2 SAT >94%, NO RESPIRATORY DISTRESS.
[2021-07-30] MEDS ORDERED: METH4TAB17 PO (11:48)
[2021-07-30 12:00] VITALS: BP 114/69
--- NOTE | 2021-07-30 13:00 | NUR ---
RN NOTES SPOKE W/ DIONY, ICE CREAM SHOP ASSOCIATE, AND MADE AWARE OF D/C ORDER. CM TO SPEAK W/ FAMILY TO ARRANGE PICKUP LATER TODAY.
[2021-07-30] MEDS: REMDESIVIR (CHARGED) 100 MG in IV NS 0.9% 100 ML IV SCH (14:02)
[2021-07-30 16:00] VITALS: BP 117/74
--- NOTE | 2021-07-30 16:15 | NUR ---
RN NOTES SPOKE W/ ANGELINA CHE, AND WAS INFORMED THAT SHE WILL CERTIFIED MEDICAL CODING SPECIALIST PATIENT BETWEEN [phone] TODAY.
--- NOTE | 2021-07-30 18:10 | NUR ---
RN NOTES PATIENT SEEN BY DR. KINNEY W/ ORDER FOR DISCHARGE TO HOME W/ HH FOLLOW-UP. DISCHARGE INSTRUCTION AND EDUCATION PROVIDED TO ANGELINA CHE, AND TO PATIENT. PATIENT UNABLE TO SIGN DISCHARGE FORM; FORM SIGNED BY ME AND WITNESSED BY ANOTHER RN LA. ALL BELONGINGS ACCOUNTED FOR. NAME ARMBAND AND IV LINE REMOVED. NO SKIN ISSUES NOTED. PATIENT WAS ACCOMPANIED TO THE LOBBY VIA WHEELCHAIR AND PICKED UP BY ANGELINA CHE, VIA PRIVATE CAR. CHARGE NURSE AND MD AWARE OF DISCHARGE.
== END 2021-07-30 18:10 | disposition home or self-care (01) | DRG 137 ==
LOC: ER 13:01 → TRANSITION 16:41 → TELE2 17:17
PROVIDERS: ADMIT Nurse Practitioner Family; ATTEND Internal Medicine
PROC: XW033E5 Introduction of Remdesivir Anti-infective into Peripheral Vein, Percutaneous Approach, New Technology Group 5 (ICD-10-PCS; principal; 2021-07-26)
DX: U07.1 COVID-19 (principal); J96.01 Acute respiratory failure with hypoxia; J12.82 Pneumonia due to coronavirus disease 2019; N17.0 Acute kidney failure with tubular necrosis; E44.0 Moderate protein-calorie malnutrition; E87.1 Hypo-osmolality and hyponatremia; D72.819 Decreased white blood cell count, unspecified; E88.09 Other disorders of plasma-protein metabolism, not elsewhere classified; N13.30 Unspecified hydronephrosis; N40.0 Benign prostatic hyperplasia without lower urinary tract symptoms; F03.90 Unspecified dementia, unspecified severity, without behavioral disturbance, psychotic disturbance, mood disturbance, and anxiety; Z79.890 Hormone replacement therapy; J90 Pleural effusion, not elsewhere classified; Z68.25 Body mass index [BMI] 25.0-25.9, adult; I12.9 Hypertensive chronic kidney disease with stage 1 through stage 4 chronic kidney disease, or unspecified chronic kidney disease; N18.9 Chronic kidney disease, unspecified
CPT/HCPCS: 36415; 36600; 71045-TC; 76770-TC; 80048-TC; 80053-TC; 80076-TC; 81001; 82550-TC; 82570-TC; 82803-TC; 83605-TC; 83615-TC; 83735-TC; 83880; 83970; 84100-TC; 84155; 84155-TC; 84165; 84300-TC; 84484-TC; 85025-TC; 85378-TC; 85610-TC; 85730-TC; 86140-TC; 87040-TC; 87081-TC; 93970-TC; A4216; C9803; G0378; J0456; J0696; J1100; J1644; J3490; J7030; J7050; J7060; U0003